=== PATIENT | male | born 1975 | race Caucasian/White ===

== ENCOUNTER 2024-10-13 01:39 | Day surgery (SDC) | payer BC, SELFPAY ==
[2024-10-03 13:10] VITALS: BMI 25.1
--- NOTE | 2024-10-13 10:35 | WPDANESEPPF ---
Anes - Initial Pre Proc Eval Procedure: Operation Date: 10/13/24 11:30 Proposed Procedures p Colonoscopy - Fletcher Carl MD Date/Time: 10/13/24 10:35 Surgeon: Fletcher Carl MD Pre Op Diagnosis: Abnormal weight loss, Screening Patient Data Age: 49 Gender: M Height: 1.83 m Weight: 84 kg Allergies Allergy/AdvReac Type Severity Reaction Status Date / Time No Known Allergies Allergy Verified 10/13/24 10:34 Home Medications ?Medication ?Instructions ?Recorded ?Confirmed ?Type candesartan 16 1 tablet PO BID #180 tabs 06/24/24 10/03/24 Rx mg-hydrochlorothiazide 12.5 mg tablet insulin degludec 200 unit/mL (3 20 unit (0.1 mL) subcut DAILY #9 mL 06/25/24 10/03/24 Rx mL) subcutaneous pen (Tresiba FlexTouch U-200 insulin) pen needle, diabetic 32 gauge x #100 ea 06/25/24 07/01/24 Rx 1/4 (Novofine 32) rosuvastatin 5 mg tablet 5 mg PO DAILY #90 tabs 06/25/24 10/03/24 Rx amlodipine 5 mg tablet 5 mg PO BID #90 tabs 09/22/24 10/03/24 Rx clonidine HCl 0.1 mg tablet 0.1 mg PO DAILY PRN hypertensive 10/03/24 10/03/24 History emergency empagliflozin 10 mg tablet 10 mg PO DAILY diabetes mellitus 10/10/24 Rx (Jardiance) #90 tabs Patient hx anesthesia problems: none Family hx anesthesia problems: none Results Review: All pre-operative results and documents have been reviewed as part of the pre-operative evaluation. [facility] Past Medical History Medical History Mixed hyperlipidemia Type 2 diabetes mellitus with hyperglycemia Essential hypertension Family History Family History Father Hypertension Grandparent Cancer Social History Social History Smoking status: Former smoker Tobacco type: e-cigarettes/vaping Alcohol intake: current Drinks per week: 12 Substance use: current Substance use type: marijuana Do You Feel Safe in your Home?: Yes Lack of Transportation: No Lack of Food: Never True Current Housing: I Have Housing Concerned About Future Housing: No Difficulty Paying Gas/Electric Bills: No Difficulty Paying for Meds: No Currently Unemployed: No Education: High School Diploma/GED Difficulty w/ Childcare or Family Care: No Living arrangements: with family Occupation/Education: occupation Gender identity (if verbalized by the patient): Male Sexual Orientation (if Verbalized by the Patient): Straight or Heterosexual Spiritual care concerns: No Anes - Eval Final PreProcedure Day of Procedure 10/13/24 10:35 Patient weight: normal Heart: regular rate and rhythm Lungs: clear to auscultation Airway: Mallampati scale class II Neurological: alert and oriented Last oral intake: >/= 8 hours ASA classification: III Emergent: no Anesthetic plan: proceed Anesthesia type and monitoring: general GIVS and standard monitoring Results Review: All pre-operative results and documents have been reviewed as part of the pre-operative evaluation. Informed Consent: The patient's anesthetic plan and its attendant risks and benefits were discussed with the patient/family/POA. Questions were solicited and answers provided to the satisfaction of the patient/family/POA.
[2024-10-13 10:38] VITALS: BP 137/90; PULSE 107; RESP 16; TEMP 36.4; O2SAT 98
[2024-10-13] MEDS: LACTATED RINGERS 1,000 ML 150 ML IV CONT (10:52)
--- NOTE | 2024-10-13 11:26 | PM.HPGS ---
History of Present Illness History of Present Illness Consent: Risks, benefits, and alternatives have been discussed and questions answered. Patient agrees to proceed with procedure. Chief complaint: Screening Narrative: Pola Carranza is a 49 year old male here for first screening colonoscopy Review of Systems Review of Systems: All systems reviewed & are unremarkable except as noted in HPI and below PMFSH Past Medical History Medical History (Updated 10/13/24 @ 11:27 by Fletcher Carl MD) Colon cancer screening Mixed hyperlipidemia Type 2 diabetes mellitus with hyperglycemia Essential hypertension Family History Family History Father Hypertension Grandparent Cancer Social History Social History Smoking status: Former smoker Tobacco type: e-cigarettes/vaping Alcohol intake: current Drinks per week: 12 Substance use: current Substance use type: marijuana Do You Feel Safe in your Home?: Yes Lack of Transportation: No Lack of Food: Never True Current Housing: I Have Housing Concerned About Future Housing: No Difficulty Paying Gas/Electric Bills: No Difficulty Paying for Meds: No Currently Unemployed: No Education: High School Diploma/GED Difficulty w/ Childcare or Family Care: No Living arrangements: with family Occupation/Education: occupation Gender identity (if verbalized by the patient): Male Sexual Orientation (if Verbalized by the Patient): Straight or Heterosexual Spiritual care concerns: No Meds Home Medications and Allergies Home Medications ?Medication ?Instructions ?Recorded ?Confirmed ?Type candesartan 16 1 tablet PO BID #180 tabs 06/24/24 10/13/24 Rx mg-hydrochlorothiazide 12.5 mg tablet insulin degludec 200 unit/mL (3 20 unit (0.1 mL) subcut DAILY #9 mL 06/25/24 10/13/24 Rx mL) subcutaneous pen (Tresiba FlexTouch U-200 insulin) pen needle, diabetic 32 gauge x #100 ea 06/25/24 07/01/24 Rx 1/4 (Novofine 32) rosuvastatin 5 mg tablet 5 mg PO DAILY #90 tabs 06/25/24 10/13/24 Rx amlodipine 5 mg tablet 5 mg PO BID #90 tabs 09/22/24 10/13/24 Rx clonidine HCl 0.1 mg tablet 0.1 mg PO DAILY PRN hypertensive 10/03/24 10/03/24 History emergency empagliflozin 10 mg tablet 10 mg PO DAILY diabetes mellitus 10/10/24 10/13/24 Rx (Jardiance) #90 tabs Allergies Allergy/AdvReac Type Severity Reaction Status Date / Time No Known Allergies Allergy Verified 10/13/24 10:34 Vital Signs Vital Signs - 24 hr 10/13/24 10:38 Temperature 97.5 F L Pulse Rate 107 H Respiratory Rate 16 Blood Pressure 137/90 Pulse Oximetry 98 Oxygen Delivery Room Air Exam Const: General: comfortable and no acute distress HENMT: Face/Nose/Sinus: Normal nares present Eyes: General: appearance normal, both eyes and all related structures Neck: Neck: no JVD Resp: Auscultation: clear to auscultation bilaterally Cardio: Rate: regular rate Rhythm: regular rhythm GI: Inspection: non-distended GI Palp: Yes Soft to palpation Skin: General skin exam: normal color Neuro: Speech: normal speech Extrem: General: normal to inspection Psych: Mental Status: mental status grossly normal Assessment and Plan Assessment and plan (1) Colon cancer screening: Code(s): Z12.11 - Encounter for screening for malignant neoplasm of colon Status: Acute Assessment and Plan: colonoscopy
--- NOTE | 2024-10-13 11:43 | S_PTH ---
PATIENT: Pola Carranza LOC: [facility]#:[id number] AGE/SX: 49/M ROOM: RE10/13/[address]: Fletcher Carl MD : 1975 BED: DIS: 10/13/2024 SPEC #: [id number] RECD: 10/13/24 11:58 STATUS: AYALA REQ #: [id number] MORENA: 10/13/24 11:[address]: Fletcher Carl DEPT: [facility] Surgical RECD BY: Shanelle Kohli ENTERED: 10/13/24 11:59 SP TYPE: Surgical OTHR DR: Gene Robles MD Tissues: A - Colon Polypectomy B - Colon Polypectomy Procedures: Hematoxylin and Eosin Stain Gross and Microscopic Level 4
[2024-10-13 11:47] VITALS: BP 118/76; PULSE 88; RESP 16; O2SAT 98
[2024-10-13 11:57] VITALS: BP 138/94; PULSE 95; RESP 16; O2SAT 96
[2024-10-13 12:07] VITALS: BP 121/90; PULSE 95; RESP 16; O2SAT 97
== END 2024-10-13 12:14 | disposition home or self-care (01) ==
PROVIDERS: PCP Family Medicine; Visit Provider Internal Medicine Gastroenterology
PROC: 0DJD8ZZ Inspection of Lower Intestinal Tract, Via Natural or Artificial Opening Endoscopic (ICD-10-PCS; CPT 45378; principal; 2024-10-13 11:30)
DX: Z12.11 Encounter for screening for malignant neoplasm of colon (principal); D12.3 Benign neoplasm of transverse colon; D12.4 Benign neoplasm of descending colon; K63.5 Polyp of colon; K57.30 Diverticulosis of large intestine without perforation or abscess without bleeding; E78.2 Mixed hyperlipidemia; E11.65 Type 2 diabetes mellitus with hyperglycemia; I10 Essential (primary) hypertension; F12.90 Cannabis use, unspecified, uncomplicated; Z79.4 Long term (current) use of insulin; Z79.84 Long term (current) use of oral hypoglycemic drugs; Z87.891 Personal history of nicotine dependence; Z80.9 Family history of malignant neoplasm, unspecified
CPT/HCPCS: 45385; 82948; 88305; J2704; J7120